=== PATIENT | female | born 1985 | race Two or more races ===

== ENCOUNTER 2022-12-12 20:30 | Emergency (ER) | payer MEDICAID, OTHER ==
[~2022-12-12] VITALS: Ht 157.5 cm; Wt 61.3 kg
[2022-12-12 20:56] VITALS: BP 120/68; PULSE 99; RESP 17; O2SAT 98
[2022-12-13] MEDS ORDERED: CEPH500C PO (20:29)
[2022-12-13] MEDS ORDERED: IBUP-1453 PO (20:29)
[2022-12-13] MEDS ORDERED: MUPI2OIN2 EX (20:29)
== END 2022-12-13 04:00 | disposition left against medical advice (07) ==
LOC: ER 20:30
DX: M79.672 Pain in left foot (principal); Z53.21 Procedure and treatment not carried out due to patient leaving prior to being seen by health care provider

== ENCOUNTER 2022-12-13 18:23 | Emergency (ER) | payer MEDICAID ==
[~2022-12-13] VITALS: Ht 157.5 cm; Wt 58.4 kg
[2022-12-13] MEDS ORDERED: IBUP-1453 PO (20:29)
[2022-12-13] MEDS ORDERED: MUPI2OIN2 EX (20:29)
[2022-12-13] MEDS ORDERED: CEPH500C PO (20:29)
[2022-12-13] MEDS ORDERED: TETANUS-DIPTH-ACEL PERTUSSIS 0.5ML SYR Tdap IM ONE (20:30)
[2022-12-13] MEDS ORDERED: NEOMYCIN-BACITRACIN-POLYM UNITDOSE PKG TOP OINT TOP ONE (20:30)
[2022-12-13] MEDS ORDERED: CEPHALEXIN 250 MG CAP PO ONE (20:30)
[2022-12-13 21:25] VITALS: BP 126/68; PULSE 96; RESP 20; TEMP 98.1; O2SAT 98
== END 2022-12-13 21:46 | disposition home or self-care (01) ==
LOC: ER 18:23
DX: S91.342A Puncture wound with foreign body, left foot, initial encounter (principal); W25.XXXA Contact with sharp glass, initial encounter; Y93.89 Activity, other specified; Y92.89 Other specified places as the place of occurrence of the external cause; Y99.8 Other external cause status
CPT/HCPCS: 73630; 90471; 90715

== ENCOUNTER 2024-01-25 08:31 | Inpatient (IN) | payer MEDICAID ==
[~2024-01-25] VITALS: Ht 165.1 cm; Wt 63.8 kg
[~2024-01-25 08:31] MED LIST: CEPH500C PO; IBUP-1453 PO; MUPI2OIN2 EX
[2024-01-25 09:00] VITALS: PULSE 118; RESP 18; O2SAT 97
[2024-01-25 09:12] LABS: Basophils # (auto) 0 10 ^3/uL (0-0.2); Basophils % (auto) 0.2 % (0.0-2.0); Eosinophils # (auto) 0 10 ^3/uL (0-0.8); Hematocrit 39.4 % (36.0-46.0); Lymphocytes # (auto) 0.8 10 ^3/uL (0.4-5.4); Mean Corpuscular Hemoglobin 26.8 pg (28.0-32.0)
[2024-01-25 09:13] LABS: Eosinophils % (auto) 0.1 % (0.0-7.0); Mean Corpuscular Hgb Conc. 32.9 g/dL (32.0-36.0); Mean Corpuscular Volume 81.3 fL (80.0-100.0); Monocytes # (auto) 0.2 10 ^3/uL (0-1.3); Monocytes % (auto) 3.1 % (0.0-12.0); Neutrophils % (auto) 85.6 % (37.0-80.0); Platelet Count (auto) 400 10^3/uL (140-450); Red Blood Cells 4.85 10^6/uL (4.0-5.20); Red Cell Distribution Width 21.5 % (11.8-14.3)
[2024-01-25 09:16] LABS: Sodium 142 mmol/L (136-145)
[2024-01-25 09:17] LABS: Anion Gap 13 (5-15); Calcium 9.6 mg/dL (8.7-10.4); Carbon Dioxide 20 mmol/L (20-31); Chloride 109 mmol/L (98-107); Potassium 3.2 mmol/L (3.5-5.1)
[2024-01-25 09:22] LABS: BUN/Creatinine Ratio 13.8 (10.0-20.0); Blood Alcohol < 3.0 mg/dL (<10); Blood Urea Nitrogen 12 mg/dL (9-23); Glucose 98 mg/dL (74-106)
--- NOTE | 2024-01-25 09:45 | ED.PDOC ---
History of Present Illness HPI Comments 38F with prior history of seizures BIBPauline with a chief complaint of 2 seizures today. Patient states her last seizure was in 2007, and that she took antiseizure medication for about a year, then took herself off of the medication because she was no longer having seizures. Pt notes that she has been sick w/ a cold, sneezing, cough w/ phlegm, so she has been taking Benadryl. Pt reports that she had a witnessed seizure by her boyfriend. Boyfriend reports the pt had a "spaced out look, then stiffening" with the first seizure lasting a couple seconds, and 20 minutes until a second seizure that lasted 5 minutes. Pt notes that she currently has a RUBALCAVA. PMHx of Asthma. SHx of Tonsillectomy. Denies chill, fever, N/V/D, SOB, CP or other associated symptoms, modifiers, or recent injuries at this time. Chief Complaint: Seizure Time Seen by MD: 09:30 Primary Care Provider: DENIES Reviewed Notes: Nurses Notes, Circuit Board Inspector Notes, Medications, Allergies Allergies: Coded Allergies: Sulfa Antibiotics (Verified Allergy, Unknown, 01/25/24) Home Meds Active Scripts Mupirocin (Pseudomonas Fluores (Mupirocin) 2 % Oin, 1 APPLIC EX BID, #15 MG apply to the affected area Prov:ROSAURA SIMMS AGRICULTURAL REAL ESTATE AGENT 12/13/22 Ibuprofen (Ibuprofen) 400 Mg Tab, 1 TAB PO Q6HPRN, #20 TAB as needed for pain Prov:ROSAURA SIMMS NP 12/13/22 Cephalexin Monohydrate (Cephalexin) 500 Mg Cap, 1 CAP PO QID for 10 Days, #40 CAP Prov:ROSAURA SIMMS AGRICULTURAL REAL ESTATE AGENT 12/13/22 Information Source: Patient, Significant Other Mode of Arrival: EMS Severity: Moderate Timing: Minutes Duration: Since onset, Minutes Prehospital treatment: None Past Medical History PAST MEDICAL HISTORY: Asthma, Seizures Surgical History: Tonsillectomy CULTURE MANAGER History: No Pertinent CULTURE MANAGER History Family History Family History: Reviewed,noncontributory to illness, Unknown Social History Smoker: Unknown Alcohol: Unknown Drugs: Unknown Lives In: Homeless Constitutional: denies: chills, diaphoresis, fatigue, fever, malaise, sweats, weakness, others EENTM: denies: blurred vision, double vision, ear bleeding, ear discharge, ear drainage, ear pain, ear ringing, eye pain, eye redness, hearing loss, mouth pain, mouth swelling, nasal discharge, nose bleeding, nose congestion, nose pain, photophobia, tearing, throat pain, throat swelling, voice changes, others Respiratory: denies: cough, hemoptysis, orthopnea, SOB at rest, shortness of breath, SOB with excertion, stridor, wheezing, others Cardiovascular: denies: chest pain, dizzy spells, diaphoresis, Dyspnea on exertion, edema, irregular heart beat, left arm pain, lightheadedness, palpitations, PND, syncope, others Gastrointestinal: denies: abdomen distended, abdominal pain, blood streaked bowels, constipated, diarrhea, dysphagia, difficulty swallowing, hematemesis, me nora, nausea, poor appetite, poor fluid intake, rectal bleeding, rectal pain, vomiting, others Genitourinary: denies: abnormal vagina bleeding, burning, dyspareunia, dysuria, flank pain, frequency, hematuria, incontinence, pain, , vagina discharge, urgency, others Neurological: reports: seizure; denies: dizziness, fainting, headache, left sided numbness, left sided weakness, numbness, paresthesia, pre-existing deficit, right sided numbness, right sided weakness, speech problems, tingling, tremors, weakness, others Musculoskeletal: denies: back pain, gout, joint pain, joint swelling, muscle pain, muscle stiffness, neck pain, others Integumetry: denies: bruises, change in color, change in hair/nails, dryness, laceration, lesions, lumps, rash, wounds, others Allergic/Immunocompromised: denies: Difficulty Healing, Frequent Infections, Hives, Itching, others Hematologic/Lymphatic: denies: anemia, blood clots, easy bleeding, easy bruising, swollen glands, others Endocrine: denies: excessive hunger, excessive sweating, excessive thirst, excessive urination, flushing, intolerance to cold, intolerance to heat, unexplained weight gain, unexplained weight loss, others Psychiatric: denies: anxiety, bipolar disorder, depression, hopeless, panic disorder, schizophrenia, sleepless, suicidal, others All Other Systems: Reviewed and Negative Physical Exam General Appearance: No Apparent Distress HEENT: PERRL/EOMI Neck: Full Range of Motion, Normal Inspection Respiratory: Lungs Clear, No Accessory Muscle Use, No Respiratory Distress, Normal Breath Sounds Cardiovascular: No Edema, No JVD, Regular Rate/Rhythm Breast Exam: Deferred Gastrointestinal: Non Tender, Soft Genitalia: Deferred Pelvic: Deferred Rectal: Deferred Extremities: Normal inspection, Normal range of motion, Non-tender, No pedal edema Neurologic: Alert (Oriented x4), Normal Affect, Normal Mood, Other (Moves all extremities. No gross focal deficit.) Cerebellar Function: NOT DONE Reflexes: NOT DONE Skin: Dry, Normal Color, Warm Lymphatic: NOT DONE Was a procedure done? Was a procedure done?: No Differential Dx Considerations may include: Recurrent seizure, URI/viral syndrome, bronchitis, pneumonia, electrolyte imbalance, arrhythmia, among others. X-Ray, Labs, Meds, VS Vital Signs Date Time Temp Pulse Resp B/P (MAP) Pulse Ox O2 Delivery O2 Flow Rate FiO2 01/25/24 10:00 102 18 123/68 (86) 97 01/25/24 09:00 98.6 118 18 111/51 (71) 97 98.6 01/25/24 09:00 118 18 97 Room Air* 0 21 01/25/24 08:34 99.0 120 18 111/60 (77) 100 Lab Test 01/25/24 10:40 01/25/24 08:59 Range/Units Influenza Type A Antigen Negative Negative Influenza Type B Antigen Negative Negative SARS-CoV-2 Antigen (Rapid) Negative NEGATIVE White Blood Count 7.0 4.4-10.8 10^3/uL Red Blood Count 4.85 4.0-5.20 10^6/uL Hemoglobin 13.0 12.2-16.2 g/dL Hematocrit 39.4 36.0-46.0 % Mean Corpuscular Volume 81.3 80.0-100.0 fL Mean Corpuscular Hemoglobin 26.8 L 28.0-32.0 pg Mean Corpuscular Hemoglobin Concent 32.9 32.0-36.0 g/dL Red Cell Distribution Width 21.5 H 11.8-14.3 % Platelet Count 400 140-450 10^3/uL Mean Platelet Volume 6.9 6.9-10.8 fL Neutrophils (%) (Auto) 85.6 H 37.0-80.0 % Lymphocytes (%) (Auto) 11.0 10.0-50.0 % Monocytes (%) (Auto) 3.1 0.0-12.0 % Eosinophils (%) (Auto) 0.1 0.0-7.0 % Basophils (%) (Auto) 0.2 0.0-2.0 % Neutrophils # (Auto) 6.0 1.6-8.6 10 ^3/uL Lymphocytes # (Auto) 0.8 0.4-5.4 10 ^3/uL Monocytes # (Auto) 0.2 0-1.3 10 ^3/uL Eosinophils # (Auto) 0 0-0.8 10 ^3/uL Basophils # (Auto) 0 0-0.2 10 ^3/uL Nucleated Red Blood Cells 0.0 % Sodium Level 142 136-145 mmol/L Potassium Level 3.2 L 3.5-5.1 mmol/L Chloride Level 109 H 98-107 mmol/L Carbon Dioxide Level 20 20-31 mmol/L Anion Gap 13 5-15 Blood Urea Nitrogen 12 9-23 mg/dL Creatinine 0.87 0.550-1.02 mg/dL Glomerular Filtration Rate Calc 87 >90 mL/min BUN/Creatinine Ratio 13.8 10.0-20.0 Serum Glucose 98 74-106 mg/dL Calcium Level 9.6 8.7-10.4 mg/dL Beta HCG, Quantitative 1.4 L 1.5-4.2 mIU/mL Plasma/Serum Blood Alcohol < 3.0 <10 mg/dL Current Medications Medications (Trade) Dose Ordered Sig/Kit Route Start Time Stop Time Status Last Admin Levetiracetam 100 ml @ 400 mls/hr ONCE ONCE IV 01/25/24 09:45 01/25/24 09:59 DC 01/25/24 10:00 Sodium Chloride 1,000 ml @ 1,000 mls/hr Q1H ONCE IV 01/25/24 09:45 01/25/24 10:44 DC 01/25/24 10:01 Acetaminophen (Tylenol Tablet) 1,000 mg ONCE ONCE PO 01/25/24 09:45 01/25/24 09:47 DC 01/25/24 10:01 PROCEDURE(s): CXR1 - CHEST XRAY 1 VIEW REASON: cough ORDER NUMBER(s): [id number], ACCESSION NUMBER(s): [id number] EXAM: XR Chest, 1 View CLINICAL INDICATION: cough TECHNIQUE: Frontal view of the chest. COMPARISON: None FINDINGS: LUNGS AND PLEURAL SPACES: Unremarkable. No consolidation. No pneumothorax. HEART: Unremarkable. No cardiomegaly. MEDIASTINUM: Unremarkable. Normal mediastinal contour. BONES/JOINTS: Unremarkable. No acute fracture. OTHER FINDINGS: . . . IMPRESSION: No acute cardiopulmonary process. X-Ray, Labs, Meds, VS Comment 38-year-old female with a history of seizure disorder, currently not on antiseizure medications, brought in by EMS after 2 seizures today. Patient also notes URI symptoms . Vitals remarkable for initial heart rate 120 Exam remarkable for tachycardia Rhythm strip independently interpreted by me: Sinus tach, rate 117, no ectopy. Chest x-ray unremarkable CBC, basic metabolic panel and hCG remarkable for potassium 3.2, no other abnormalities of acute significance. Alcohol negative, influenza and COVID negative. Patient treated with the following in the ED: 1 L 0.9 normal saline IV bolus, Keppra 1 g IV, KCl 40 mEq p.o., Tylenol 1 g p.o. On re-evaluation, patient states her headache has improved, tachycardia is improving, other vitals were stable. Plan is to admit the patient for neurology evaluation. Time of 1ST Reevaluation: 10:00 Reevaluation 1ST: Unchanged Patient Education/Counseling: Diagnosis, Treatment, Prognosis Family Education/Counseling: Diagnosis, Treatment, Prognosis Additional Information I reviewed the following notes from the pt's past medical encounters: 12/13/22 The following tests were ordered, and results were reviewed by me: labs, EKGS, X-Rays, PHA Additional information was gathered from interviewing the following independent historians: mario alberto I reviewed and agreed with the following test results read by other providers: xray I discussed treatments and results with medical personnel and: (consultants, fam, etc) Departure 1 Departure Time of Disposition: 12:16 Impression: Primary Impression: Recurrent seizures Disposition: ADMITTED INPATIENT Admit to: Tele Condition: Guarded Critical Care Note Critical Care Time?: No Stability Stability form required: No Heart Score Heart Score: Heart Score Response (Comments) Value History N/A 0 EKG N/A 0 Age N/A 0 Risk Factors N/A 0 Troponin N/A 0 Total 0 I personally scribed for ANAIS QUIGLEY MD ([email or web address]) on 01/25/24 at 09:45. Electronically submitted by Mitch Sauceda ([email or web address]). ANAIS QUIGLEY MD Jan 25, 2024 09:45
[2024-01-25] MEDS: levETIRAcetam 1000 mg/100ml 100 ML IV ONE (10:00)
[2024-01-25] MEDS: ACETAMINOPHEN 325 MG TAB PO ONE (10:01)
[2024-01-25] MEDS: SODIUM CHLORIDE 0.9% 1,000 ML IV ONE (10:01)
--- NOTE | 2024-01-25 10:07 | DVH ---
EXAM: XR Chest, 1 View CLINICAL INDICATION: cough TECHNIQUE: Frontal view of the chest. COMPARISON: None FINDINGS: LUNGS AND PLEURAL SPACES: Unremarkable. No consolidation. No pneumothorax. HEART: Unremarkable. No cardiomegaly. MEDIASTINUM: Unremarkable. Normal mediastinal contour. BONES/JOINTS: Unremarkable. No acute fracture. OTHER FINDINGS: . . . IMPRESSION: No acute cardiopulmonary process.
[2024-01-25 11:17] LABS: COVID19 ANTIGEN SOFIA FIA NEGATIVE (NEGATIVE)
[2024-01-25 11:18] LABS: Rapid Influenza A Negative (Negative); Rapid Influenza B Negative (Negative)
[2024-01-25] MEDS ORDERED: ACETAMINOPHEN 325 MG TAB PO PRN (13:15)
[2024-01-25] MEDS ORDERED: DOCUSATE SOD 100 MG CAP PO PRN (13:15)
[2024-01-25] MEDS ORDERED: SODIUM CHLORIDE 0.9% 1,000 ML IV SCH (13:15)
[2024-01-25] MEDS ORDERED: MORPHINE SULFATE INJ 2 MG/ml SYRG IV PRN (13:15)
[2024-01-25] MEDS: POTASSIUM CHL 20 Meq TABLET PO ONE (13:30)
--- NOTE | 2024-01-25 13:43 | DVHHP2 ---
History of Present Illness Reason for Visit: seizures History of Present Illness Jonas Conklin is a 38YO F with pmHx of seizures, asthma, and tonsillectomy who presents to the ED for seizures for the past 2 days. Patient reports a headache, nausea, and vomiting x 1 day. EMS was called and patient taken to the ED for an evaluation. Patient reported that she had been sick with a cold and that resolved. Patient reports she had a seizure yesterday while she was washing dishes in the kitchen, stated she hit the right side of her head against the wall but did not lose consciousness. She reports today she had 2 seizures while in bed, her fiance stated she spaced out for a few seconds while the 2nd seizure came after about 20mins and lasted 5 minutes. Patient reports in 2007 was her last seizure episode in which her PCP stopped her medications, she stated because she no longer needed them. Patient reports there was no triggering factors to the seizures and it just suddenly happened. Patient complains of a frontal headache 7/10 pain and constant. She reports she takes an albuterol inhaler for her asthma prn. Patient denies chest pain, sob, lightheadedness, dizziness, abdominal pain and diarrhea. Pulmonary: Asthma SPACE SCHEDULER: Seizure Past Surgical History: Tonsillectomy Family History: Cancer, Other Family History Mom and sister - seizures Dad - [place] Smoke: No ALCOHOL: none Drugs: Marijuana Lives: with Family Domestic Violence: Neg Review of Systems Constitutional: No: Fever, Chills, Sweats, Weakness, Malaise, Other Eyes: No: Pain, Vision change, Conjunctivae inflammation, Eyelid inflammation, Other, Redness ENT: No: Ear pain, Ear discharge, Nose pain, Nose discharge, Nose congestion, Mouth pain, Mouth swelling, Throat pain, Throat swelling, Other Respiratory: No: Cough, Dry, Shortness of breath, SOB with excertion, Wheezing, Hemoptysis, Pleuritic Pain, Sputum, Wheezing, Other Cardiovascular: No: Chest Pain, Palpitations, Orthopnea, Paroxysmal Noc. Dyspnea, Edema, Lt Headedness, Other Gastrointestinal: Nausea, Vomiting; No: Abdominal Pain, Diarrhea, Constipation, Melena, Hematochezia, Other Genitourinary: No Dysuria, No Frequency, No Incontinence, No Hematuria, No Retention, No Other Musculoskeletal: No: other, neck pain, shoulder pain, arm pain, back pain, hand pain, leg pain, foot pain Skin: No: Rash, Lesions, Jaundice, Bruising, Other Neurological: Weakness, Seizures; No: Numbness, Incoordination, Change in speech, Confusion, Other Allergies: Coded Allergies: Sulfa Antibiotics (Verified Allergy, Unknown, 01/25/24) Exam Vital Signs Vital Signs Date Time Temp Pulse Resp B/P (MAP) Pulse Ox O2 Delivery O2 Flow Rate FiO2 01/25/24 12:00 96 16 116/71 (86) 98 01/25/24 09:00 98.6 98.6 01/25/24 09:00 Room Air* 0 21 General Appearance: Alert, Oriented X3, Cooperative, No acute distress HEENT: Atraumatic, PERRLA, EOMI, Mucous membr. moist/pink Respiratory: Clear to auscultation, Normal air movement Cardiovascular: Normal S1, Normal S2, No murmurs Abdominal: Normal bowel sounds, Soft, No tenderness, No hepatospenomegaly, No masses Extremities: No clubbing, No cyanosis, No edema, Normal pulses, No tenderness/swelling Skin: No rashes, No breakdown, No significant lesion Neuro: Normal gait, Normal speech, Strength at 5/5 X4 ext, Normal tone, Sensation intact Psych/Mental Status: Mental status NL, Mood NL Labs/Xrays Labs Test 01/25/24 10:40 01/25/24 08:59 Range/Units Influenza Type A Antigen Negative Negative Influenza Type B Antigen Negative Negative SARS-CoV-2 Antigen (Rapid) Negative NEGATIVE White Blood Count 7.0 4.4-10.8 10^3/uL Red Blood Count 4.85 4.0-5.20 10^6/uL Hemoglobin 13.0 12.2-16.2 g/dL Hematocrit 39.4 36.0-46.0 % Mean Corpuscular Volume 81.3 80.0-100.0 fL Mean Corpuscular Hemoglobin 26.8 L 28.0-32.0 pg Mean Corpuscular Hemoglobin Concent 32.9 32.0-36.0 g/dL Red Cell Distribution Width 21.5 H 11.8-14.3 % Platelet Count 400 140-450 10^3/uL Mean Platelet Volume 6.9 6.9-10.8 fL Neutrophils (%) (Auto) 85.6 H 37.0-80.0 % Lymphocytes (%) (Auto) 11.0 10.0-50.0 % Monocytes (%) (Auto) 3.1 0.0-12.0 % Eosinophils (%) (Auto) 0.1 0.0-7.0 % Basophils (%) (Auto) 0.2 0.0-2.0 % Neutrophils # (Auto) 6.0 1.6-8.6 10 ^3/uL Lymphocytes # (Auto) 0.8 0.4-5.4 10 ^3/uL Monocytes # (Auto) 0.2 0-1.3 10 ^3/uL Eosinophils # (Auto) 0 0-0.8 10 ^3/uL Basophils # (Auto) 0 0-0.2 10 ^3/uL Nucleated Red Blood Cells 0.0 % Sodium Level 142 136-145 mmol/L Potassium Level 3.2 L 3.5-5.1 mmol/L Chloride Level 109 H 98-107 mmol/L Carbon Dioxide Level 20 20-31 mmol/L Anion Gap 13 5-15 Blood Urea Nitrogen 12 9-23 mg/dL Creatinine 0.87 0.550-1.02 mg/dL Glomerular Filtration Rate Calc 87 >90 mL/min BUN/Creatinine Ratio 13.8 10.0-20.0 Serum Glucose 98 74-106 mg/dL Calcium Level 9.6 8.7-10.4 mg/dL Beta HCG, Quantitative 1.4 L 1.5-4.2 mIU/mL Plasma/Serum Blood Alcohol < 3.0 <10 mg/dL EXAM: XR Chest, 1 View CLINICAL INDICATION: cough TECHNIQUE: Frontal view of the chest. COMPARISON: None FINDINGS: LUNGS AND PLEURAL SPACES: Unremarkable. No consolidation. No pneumothorax. HEART: Unremarkable. No cardiomegaly. MEDIASTINUM: Unremarkable. Normal mediastinal contour. BONES/JOINTS: Unremarkable. No acute fracture. OTHER FINDINGS: . . . IMPRESSION: No acute cardiopulmonary process. EXAM: CT HEAD WITHOUT CONTRAST INDICATION: sz COMPARISON: None FINDINGS: There is no evidence of acute intracranial hemorrhage, extra-axial collection, mass effect, midline shift, herniation or hydrocephalus. The ventricles, sulci and cisterns are age appropriate. The alberto-white differentiation is intact. Patchy periventricular and subcortical white matter hypoattenuation is nonspecific but may be related to small vessel ischemic disease. The visualized paranasal sinuses and mastoid air cells are clear. The surrounding soft tissues and osseous structures are unremarkable. IMPRESSION: 1. No acute intracranial hemorrhage 2. No CT findings of territorial ischemia. 3. No intracranial mass or mass effect. Assessment/Plan Assessment/Plan Assessment/Plan: Seizure neuro cx ekg cxr ct a/p ua IV keppra covid screen flu screen alcohol screen uds hcg screen am labs sz precautions positive substance abuse Hypokalemia replete lytes am labs Asthma resp txs prn Polysubstance abuse Counseled patient on cessation of substance abuse FEN/PPX ivf diet lovenox no indication for PUD ppx no hx of gerd Admit to med surg Discussed plan of care with patient and nurse Plan discussed with: Patient My Orders Orders - TUNG CARRASCO Procedure Category Date Status Time Head Without Contrast CT 01/25/24 Logged 12:45 * Neurology Consult CONS 01/25/24 Transmitted 12:47 Levetiracetam Ivpb PHA 01/25/24 Transmitted Keppra 22:00 Admit ADMIT 01/25/24 Transmitted 13:12 Allergies ELYSE 01/25/24 In Process 13:12 Code Status CODE 01/25/24 Transmitted 13:12 0.9% Ns 1000 Ml PHA 01/25/24 Transmitted 13:15 Hydrocodone-Acet PHA 01/25/24 Transmitted 5/325mg Tab (Mcdonald 13:15 Ondansetron Hcl PHA 01/25/24 Transmitted (Zofran) 13:15 Docusate Sodium PHA 01/25/24 Transmitted Capsule (Colace 13:15 Enoxaparin Sodium PHA 01/26/24 Transmitted (Lovenox) 10:00 Complete Blood Count LAB 01/26/24 Verified 04:00 Comprehensive LAB 01/26/24 Verified Metabolic Panel 04:00 Cardiac DIET 01/25/24 Transmitted Diet-2gna,Lofat,Lochol Lunch Acetaminophen Tablet PHA 01/25/24 Transmitted (Tylenol Tablet) 13:15 Morphine Sulfate PHA 01/25/24 Transmitted Injection 13:15 Electrocardigram EKG 01/25/24 Logged 13:12 Date of Service: Jan 25, 2024 Billing Provider: TUNG CARRASCO Common Visit Codes: [id number] INP/OBS CARE (MOD) TUNG CARRASCO Jan 25, 2024 13:43
[2024-01-25] MEDS ORDERED: IPRATROPIUM BROM 0.5 MG/2.5ML INH SOL NEB PRN (13:45)
[2024-01-25] MEDS ORDERED: ALBUTEROL SULF 2.5 MG/0.5ML(0.5%) NEB SOLN NEB PRN (13:45)
[2024-01-25 14:08] VITALS: BP 116/71; PULSE 97; RESP 18; TEMP 98.6; O2SAT 94
[2024-01-25] MEDS: ONDANSETRON HCL 4 MG/2 ML VIAL IV PRN (14:13)
[2024-01-25] MEDS: HYDROcodone-ACET 5/325MG TAB PO PRN (14:13)
--- NOTE | 2024-01-25 14:25 | DVH ---
EXAM: CT HEAD WITHOUT CONTRAST INDICATION: sz TECHNIQUE: CT of the head without intravenous contrast. Radiation Dose Information: CT Dose: CTDI volume is 53.99 mGy. Dose-length product is 755.91 mGy*cm The dose indicators for CT are the volume Computed Tomography (CT) Dose Index (CTDIvol) and the Dose Length Product (DLP), and are measured in units of mGy and mGy-cm, respectively. These indicators are not patient dose, but values generated from the CT scanner acquisition factors. The report includes radiation exposure data for exposures received during this examination. COMPARISON: None FINDINGS: There is no evidence of acute intracranial hemorrhage, extra-axial collection, mass effect, midline s hift, herniation or hydrocephalus. The ventricles, sulci and cisterns are age appropriate. The alberto-white differentiation is intact. Patchy periventricular and subcortical white matter hypoattenuation is nonspecific but may be related to small vessel ischemic disease. The visualized paranasal sinuses and mastoid air cells are clear. The surrounding soft tissues and osseous structures are unremarkable. IMPRESSION: 1. No acute intracranial hemorrhage 2. No CT findings of territorial ischemia. 3. No intracranial mass or mass effect.
[2024-01-25 15:13] LABS: Urine Bacteria None Seen /hpf (None Seen)
[2024-01-25 15:37] LABS: Urine Blood 3+ /uL (Negative); Urine Clarity Clear (Clear); Urine Color Light-Orange (Yellow); Urine Mucus FEW (None Seen); Urine Protein, UAD 1+ (Negative); Urine Specific Gravity 1.025 (1.001-1.035); Urine Urobilinogen 4 mg/dL (Negative); Urine WBC 10 /hpf (0 - 5); Urine pH 7.5 (5.0-9.0)
[2024-01-25 15:46] LABS: Amphetamine Screen, Urine Pos (NEGATIVE); Barbiturate Scree,Urine Neg (NEGATIVE); Benzodiazephine Screen, Urine Neg (NEGATIVE); Cocaine Screen, Urine Neg (NEGATIVE); Opiate Scree,Urine Neg (NEGATIVE); Phencyclidine Screen, Urine Neg (NEGATIVE)
[2024-01-25 15:47] LABS: Cannabinoid Screen, Urine Pos (NEGATIVE)
[2024-01-25] MEDS ORDERED: levETIRAcetam 500 mg/100ml 100 ML IV SCH (22:00)
[2024-01-26] MEDS ORDERED: ENOXAPARIN SOD 40 MG/0.4 ML SYRINGE SC SCH (10:00)
== END 2024-01-25 15:19 | disposition left against medical advice (07) | DRG 53 ==
LOC: EDBD 08:31 → ER 08:31 → OVERFLOW 13:12
DX: G40.909 Epilepsy, unspecified, not intractable, without status epilepticus (principal); E87.6 Hypokalemia; J45.909 Unspecified asthma, uncomplicated; Z20.822 Contact with and (suspected) exposure to COVID-19; F19.10 Other psychoactive substance abuse, uncomplicated; Z59.00 Homelessness unspecified; Z88.2 Allergy status to sulfonamides; Z82.0 Family history of epilepsy and other diseases of the nervous system; Z79.899 Other long term (current) drug therapy
CPT/HCPCS: 36415; 70450; 71045; 80048; 80307; 80320; 81001; 84702; 85025; 87426; 87804; G0378; J2405

== ENCOUNTER 2024-09-21 02:55 | Emergency (ER) | payer MEDICAID ==
[~2024-09-21] VITALS: Ht 157.5 cm; Wt 51.3 kg
--- NOTE | 2024-09-21 05:52 | ED.PDOC ---
Eye-HPI Chief Complaint: Flu like Time Seen by MD: 03:19 Primary Care Provider: SAGRARIO Reviewed Notes: Nurses Notes, Medications, Allergies Allergies: Coded Allergies: Sulfa Antibiotics (Verified Allergy, Unknown, 01/25/24) Home Meds Active Scripts Mupirocin (Pseudomonas Fluores (Mupirocin) 2 % Oin, 1 APPLIC EX BID, #15 MG apply to the affected area Prov:SUSAN SIMMSA Q MANAGER SURGICAL 12/13/22 Ibuprofen (Ibuprofen) 400 Mg Tab, 1 TAB PO Q6HPRN, #20 TAB as needed for pain Prov:SIMMS,REMAALDA Q MANAGER SURGICAL 12/13/22 Cephalexin Monohydrate (Cephalexin) 500 Mg Cap, 1 CAP PO QID for 10 Days, #40 CAP Prov:SIMMSSUSANA Q MANAGER SURGICAL 12/13/22 Information Source: Patient Mode of Arrival: Ambulatory Past Medical History PAST MEDICAL HISTORY: Asthma, Seizures Surgical History: Tonsillectomy OCEAN EXPORT ACCOUNT MANAGER History: No Pertinent OCEAN EXPORT ACCOUNT MANAGER History Family History Family History: Reviewed,noncontributory to illness, Unknown Social History Smoker: Unknown Alcohol: Unknown Drugs: Unknown Lives In: Homeless Physical Exam General Appearance: No Apparent Distress, Normal HEENT: Normal ENT Inspection, Pharynx Normal, TMs Normal Neck: Full Range of Motion, Non-Tender, Normal, Normal Inspection Respiratory: Chest Non-Tender, Lungs Clear, No Accessory Muscle Use, No Respiratory Distress, Normal Breath Sounds Cardiovascular: No Edema, No JVD, No Murmur, No Gallop, Normal Peripheral Pulses, Regular Rate/Rhythm Breast Exam: Deferred Gastrointestinal: No Organomegaly, Non Tender, No Pulsatile Mass, Normal Bowel Sounds, Soft Genitalia: Deferred Pelvic: Deferred Rectal: Deferred Extremities: No calf tenderness, Normal capillary refill, Normal inspection, Normal range of motion, Non-tender, No pedal edema Musculoskeletal : Apperance: Normal Neurologic: Alert, oncology consultant II-XII nml as Tested, No Motor Deficits, Normal Affect, Normal Mood, No Sensory Deficits Cerebellar Function: Normal Reflexes: Normal Skin: Dry, Normal Color, Warm Lymphatic: No Adenopathy Was a procedure done? Was a procedure done?: No EENT DIFF Eye: N/A Ear: Foreign Body, Otitis Externa, Otitis Media, Perforation, Pharyngitis Sore Throat: Streptococcal, Viral Pharyngitis, URI X-Ray, Labs, Meds, VS Vital Signs Date Time Temp Pulse Resp B/P (MAP) Pulse Ox O2 Delivery O2 Flow Rate FiO2 09/21/24 02:59 99.1 110 18 132/70 97 99.1 Time of 1ST Reevaluation: 04:30 Reevaluation 1ST: Unchanged Time of 2ND Reevaluation: 05:52 Reevaluation 2ND: Improved Patient Education/Counseling: Diagnosis, Treatment, Prognosis, Need For Follow Up Family Education/Counseling: Diagnosis, Treatment, Prognosis, Need For Follow Up SEPSIS Sepsis Screen Date sepsis recognized/suspect: Sep 21, 2024 Time Sepsis recognized/suspect: 0304 Recent Procedure: No On Antibiotic Therapy: No Respiratory Rate >20: No Heart Rate >90: Yes Temp<36 C (96.8 F) or >38.3 C: No SBP <90 or MAP <65 mmHG: No New Acute Mental Status Change: No Is the patient on CPAP, BIPAP,: No Physician Orders Rapid Influenza A&B (09/21/24 05:14) Covid19 Antigen Rayna (09/21/24 ) Hydrocodone-Acet 5/325mg Tab ([place] 5/32 (09/21/24 06:00) Ondansetron Po (Zofran Po) (09/21/24 06:00) Vital Signs Date Time Temp Pulse Resp B/P (MAP) Pulse Ox O2 Delivery O2 Flow Rate FiO2 09/21/24 02:59 99.1 110 18 132/70 97 99.1 Departure 1 Departure Time of Disposition: 05:54 Impression: Primary Impression: URI (upper respiratory infection) Qualified Codes: J06.9 - Acute upper respiratory infection, unspecified Disposition: 01 HOME / SELF CARE / HOMELESS Condition: Stable e-Prescriptions Methylprednisolone (Medrol Dosepak) 4 Mg Angel 4 MG PO UD for 6 Days, #21 TAB UAD Prov: MARSHA BOSS 09/21/24 Cefdinir (Cefdinir) 300 Mg Cap 1 CAP PO BID for 7 Days, #14 CAP Prov: MARSHA BOSS 09/21/24 Discharged With: Spouse Critical Care Note Critical Care Time?: No Stability Stability form required: No MARSHA BOSS Sep 21, 2024 05:52
[2024-09-21] MEDS ORDERED: CEFD300C2 PO (05:55)
[2024-09-21] MEDS ORDERED: METH4PAK PO (05:55)
[2024-09-21] MEDS: HYDROcodone-ACET 5/325MG TAB PO ONE (06:22)
[2024-09-21] MEDS: ONDANSETRON ODT 4 MG TAB PO ONE (06:22)
[2024-09-21 06:29] VITALS: BP 118/78; PULSE 91; RESP 17; TEMP 97.8; O2SAT 98
== END 2024-09-21 06:29 | disposition home or self-care (01) ==
LOC: ER 02:55
DX: J06.9 Acute upper respiratory infection, unspecified (principal); J45.909 Unspecified asthma, uncomplicated; F17.200 Nicotine dependence, unspecified, uncomplicated; Z90.89 Acquired absence of other organs; Z88.2 Allergy status to sulfonamides
CPT/HCPCS: 99283; Q0162